=== PATIENT | male | born 1985 | race African-American/Black ===

== ENCOUNTER 2018-12-10 09:35 | Emergency (ER) | payer MEDICAID ==
[~2018-12-10] VITALS: Ht 180.3 cm; Wt 103.6 kg
[2018-12-10 09:41] VITALS: BP 109/67; Ht 180.3 cm; Wt 103.6 kg
== END 2018-12-10 10:36 | disposition home or self-care (01) ==
LOC: ED 09:35
DX: S83.92XA Sprain of unspecified site of left knee, initial encounter (principal); X58.XXXA Exposure to other specified factors, initial encounter; Y93.67 Activity, basketball; Y92.89 Other specified places as the place of occurrence of the external cause; Y99.8 Other external cause status